=== PATIENT | female | born 1950 | race Caucasian/White ===

== ENCOUNTER 2020-07-26 11:15 | Outpatient (RCR) | payer MEDICARE, OTHER, SELFPAY ==
[2020-07-12 10:13] VITALS: BP 130/80; RESP 20; TEMP 36.3
[2020-07-12 11:43] VITALS: BP 132/82; PULSE 70; RESP 18
--- NOTE | 2020-07-12 12:23 | HP.PCM_ITS ---
(1) Wound of left lower extremity Status: Acute Code(s): S81.802A - Unspecified open wound, left lower leg, initial encounter Comment: Traumatic, penetrating with fat layer exposed. (2) History of liver transplant Status: Acute Code(s): Z94.4 - Liver transplant status History of Present Illness Date of Service: 07/12/20 Chief Complaint: Left Leg Wound History of Wound: Ms Hook is a 69-year-old who was referred to the wound center by her primary care physician due to left leg wound. Sustained 3 weeks ago after she fell from missing a step. Tried to manage this on her own but went to see her primary care physician when no significant improvement was noted. Had initially been applying Aquaphor but was switched to mupirocin by her primary care physician. She states that it improved a little. Denies chills, fever or otherwise feeling of unwell. Past Medical History Allergies/Adverse Reactions: Allergies ciprofloxacin [From Cipro] Adverse Reaction (Verified 07/12/20 11:25) Anaphylaxis Penicillins Adverse Reaction (Verified 07/12/20 11:25) Hives Review of Systems Constitutional: Denies: Anorexia, Chills, Fever Eyes: Denies: Blurred vision, Pain, Redness HEENT: Denies: Difficulty Hearing, Difficulty Swallowing, Head Aches Cardiovascular: Denies: Chest Pain, Claudication, Chest Pressure, Chest Tightness Respiratory: Denies: Cough, Hemoptysis, Pleuritic Pain Gastrointestinal: Denies: Abdominal Pain, Hematemesis, Vomiting Genitourinary: Denies: Hematuria Skin: Denies: Jaundice - Physical Exam Vital Signs Temp Pulse Resp BP 97.4 F L 70 18 132/82 H 07/12/20 10:13 07/12/20 11:43 07/12/20 11:43 07/12/20 11:43 General: Alert, Oriented x3, Cooperative, No apparent distress HEENT: Atraumatic, Normocephalic Oral: Moist Mucosa Neck: Supple, No JVD Lungs: Normal air movement Extremities: No cyanosis, Edema Skin: Ulcer/ Wound Wound Measurements and Assessment WC - Nurse 1 - General Ulcer Measurement Start: 07/12/20 10:13 Freq: Status: Active Protocol: Activity Type Activity Date Activity User E-Sign Co-Sign Detail Recorded Client Recorded Date Recorded By Document 07/12/20 10:13 MT [id number] 07/12/20 10:39 MT 07/12/20 10:13 Wound Center Nurse 1 [Ulcer Assessment] #1 Left Superior Celaya -Current Size (cm) - Length 10.5 -Current Size (cm) - Width 13.0 -Current Size (cm) - Depth 0.1 -Total Square Cm 136.50 -Exudate Amt Medium -Exudate Type Serosanguineous -Wound Margin Flat & Intact -Granulation Amt Medium (34-66%) -Granulation Quality Pale,[place],Red -Necrosis Amt Small (1-33%) -Necrotic Tissue Type Adherent Slough -Texture (Adeola-wound Skin Appearance) Assessed -Moisture (Adeola-wound Skin Appearance Assessed ) -Color (Adeola-wound Skin Appearance) Assessed -Temperature (Adeola-wound Skin No Abnormality Appearance) (Pt Warm) -Tenderness on Palpation (Adeola-wound No Skin Appearance) -Ulcer Cleansing Rinsed/ Irrigated with Saline -Foul Odor after Cleansing No -Anesthetic Used 4% Lidocaine Solution [Edema Assessment] -Lower Limb Edema Present NA WC - Nurse 2 - General Ulcer CM Notes Start: 07/12/20 10:13 Freq: Status: Active Protocol: Activity Type Activity Date Activity User E-Sign Co-Sign Detail Recorded Client Recorded Date Recorded By Document 07/12/20 10:52 MW [id number] 07/12/20 11:03 MW 07/12/20 10:52 Wound Center Nurse 2 [Procedure/Treatment] #1 Left Superior Celaya -Time 10:52 -Correct Patient Yes -Correct Side, Site, Position Yes -Correct Procedure Yes -Procedure Performed Yes -Type of Procedure Debridement -Clinical Debridement Subcutaneous -Tissue Removed Subcutaneous -Post Debridement (cm) - Length 10.5 -Post Debridement (cm) - Width 15.0 -Post Debridement (cm) - Depth 0.1 -Total Square (Post) (cm) 157.50 -Area of Debridement (cm) - Length 10.5 -Area of Debridement (cm) - Width 15.0 -Total Square (Area) (cm) 157.50 -Tunneling No -Undermining/Tunneling No -Circular Undermining No -Wound/Ulcer Outcome Not Healed -Ulcer Cleansing Rinsed/ Irrigated with Saline -Foul Odor after Cleansing No -Bioengineered Tissue No -Bleeding Controlled with Pressure -Offloading No -Debridement - Subq, 1st 20sq cm Yes -Debridement, SubQ, ea addt'l 20sq cm 7 or part thereof [See Physician Procedure note for Specifics] Pain Scale: 0-10 Numeric [Pain] -Is Patient Pain Free? Yes - Nurse 3 - General Ulcer D/C NN Start: 07/12/20 10:13 Freq: Status: Active Protocol: Activity Type Activity Date Activity User E-Sign Co-Sign Detail Recorded Client Recorded Date Recorded By Document 07/12/20 11:43 MT [id number] 07/12/20 11:53 MT 07/12/20 11:43 Wound Care Nurse 3 [Wound Dressing] #1 Left Superior Celaya -Ulcer Cleansing Rinsed/ Irrigated with Saline -Primary Dressing Applied Fibracol Plus 4x4 -Other Dressing adaptic -Primary Dressing Covered/Secured Dry Gauze & with Roll Gauze, Secured with Tape -Fibracol Plus 4x4 3 Vital Signs [Pulse] -Pulse Rate (60-100 beats/min) 70 -Pulse Location Monitor [Respirations] -Respiratory Rate (12-18 breaths/min) 18 -Respiratory rate source Observation [Blood Pressure] -Blood Pressure (90/60-120/80 mm Hg) 132/82 H -Blood Pressure Mean (mm Hg) 98 -Source Monitor -Position Semi-Fowlers -Blood Pressure Location Left Arm - Visit Discharge [Visit Discharge Information] -Discharge Condition Stable -Ambulatory Status Ambulatory -Transportation Private Auto -Medication Reconcilliation completed No & provided to patient/care provider -Clinical Summary of Care Provided Yes Musculoskeletal: No Muscle Wasting Neurological: Cranial nerves II-XII grossly intact Psych/Mental Status: Normal Affect Debridement Note Post-Debridement Measurements/Treatment - Nurse 2 - General Ulcer CM Notes Start: 07/12/20 10:13 Freq: Status: Active Protocol: Activity Type Activity Date Activity User E-Sign Co-Sign Detail Recorded Client Recorded Date Recorded By Document 07/12/20 10:52 MW [id number] 07/12/20 11:03 MW 07/12/20 10:52 Wound Center Nurse 2 #1 Left Superior Celaya -Time 10:52 -Correct Patient Yes -Correct Side, Site, Position Yes -Correct Procedure Yes -Procedure Performed Yes -Type of Procedure Debridement -Clinical Debridement Subcutaneous -Tissue Removed Subcutaneous -Post Debridement (cm) - Length 10.5 -Post Debridement (cm) - Width 15.0 -Post Debridement (cm) - Depth 0.1 -Total Square (Post) (cm) 157.50 -Area of Debridement (cm) - Length 10.5 -Area of Debridement (cm) - Width 15.0 -Total Square (Area) (cm) 157.50 -Tunneling No -Undermining/Tunneling No -Circular Undermining No -Wound/Ulcer Outcome Not Healed -Ulcer Cleansing Rinsed/ Irrigated with Saline -Foul Odor after Cleansing No -Bioengineered Tissue No -Bleeding Controlled with Pressure -Offloading No -Debridement - Subq, 1st 20sq cm Yes -Debridement, SubQ, ea addt'l 20sq cm 7 or part thereof Pain Scale: 0-10 Numeric Is Patient Pain Free? Yes - Nurse 3 - General Ulcer D/C NN Start: 07/12/20 10:13 Freq: Status: Active Protocol: Activity Type Activity Date Activity User E-Sign Co-Sign Detail Recorded Client Recorded Date Recorded By Document 07/12/20 11:43 OK [id number] 07/12/20 11:53 OK 07/12/20 11:43 Wound Care Nurse 3 #1 Left Superior Celaya -Ulcer Cleansing Rinsed/ Irrigated with Saline -Primary Dressing Applied Fibracol Plus 4x4 -Other Dressing adaptic -Primary Dressing Covered/Secured with Dry Gauze & Roll Gauze, Secured with Tape -Fibracol Plus 4x4 3 Vital Signs Pulse Rate (60-100 beats/min) 70 Pulse Location Monitor Respiratory Rate (12-18 breaths/min) 18 Respiratory rate source Observation Blood Pressure (90/60-120/80 mm Hg) 132/82 H Blood Pressure Mean (mm Hg) 98 Source Monitor Position Semi-Fowlers Blood Pressure Location Left Arm WC - Visit Discharge Discharge Condition Stable Ambulatory Status Ambulatory Transportation Private Auto Medication Reconcilliation completed & No provided to patient/care provider Clinical Summary of Care Provided Yes Wound debrided: Left leg Type of Debridement: Excisional debridement Anesthesia Used: 4% Lidocaine Solution Depth: Down to and including healthy tissue, in the subcutaneous layer Percentage of wound debrided: 100 Instrument Used: 7mm curette Tissue Removed: Slough and devitalized tissue Severity: Fat Layer Exposed Amount of bleeding with debridement: Mild Bleeding Controlled with: Pressure Patient tolerated procedure well Assessment/Plan Active Problems Wound of left lower extremity (Acute) Traumatic, penetrating with fat layer exposed. History of liver transplant (Acute) Assessment: Traumatic, penetrating left leg wound status post fall. History of liver transplant. Plan: Debridement done as documented above, procedure was well-tolerated. Cultures taken. Fibracol daily to twice daily depending on drainage. Adaptic and gauze over top. Double layer Tubigrip for edema management. Elevate lower extremities when seated and in bed. Increased protein intake discussed. Zinc and vitamin C supplements also recommended. Her questions were answered and she was advised to call with any further questions or concerns. Follow-up in a week. This note was generated with [email or web address] dictation software. It may contain incorrect words, spelling, and punctuation that were not noted in checking the note before signing. Multi Select Codes - Visit Charges Office Visit/Consults: 49507 OV L4 New - Integumentary Integumentary CPT Codes: 05288 Viky subq tissue 20 sq cm/< - Additional square centimeter debrided, please refer to clinical note.
[2020-07-19 11:02] VITALS: BP 120/83; PULSE 65; RESP 18; TEMP 36.4
[2020-07-19 11:35] VITALS: BP 118/76; PULSE 66
--- NOTE | 2020-07-19 12:23 | PN.PCM_ITS ---
(1) Wound of left lower extremity Status: Acute Code(s): S81.802A - Unspecified open wound, left lower leg, initial encounter Comment: Traumatic, penetrating with fat layer exposed. (2) History of liver transplant Status: Acute Code(s): Z94.4 - Liver transplant status Type of Wound Date of Service: 07/19/20 Chief Complaint: Left Leg Wound History of Wound: Ms Hook is a 69-year-old who was referred to the wound center by her primary care physician due to left leg wound. Sustained 3 weeks ago after she fell from missing a step. Tried to manage this on her own but went to see her primary care physician when no significant improvement was noted. Had initially been applying Aquaphor but was switched to mupirocin by her primary care physician. She states that it improved a little. Denies chills, fever or otherwise feeling of unwell. Progress of Wound: Improving. No new concerns at this time. - Physical Exam Vital Signs Temp Pulse Resp BP 97.5 F L 66 18 118/76 07/19/20 11:02 07/19/20 11:35 07/19/20 11:02 07/19/20 11:35 General: Alert, Oriented x3, Cooperative, No apparent distress HEENT: Atraumatic, Normocephalic Oral: Moist Mucosa Neck: Supple Lungs: Normal air movement Extremities: No cyanosis Skin: Ulcer/ Wound Wound Measurements and Assessment WC - Nurse 1 - General Ulcer Measurement Start: 07/12/20 10:13 Freq: Status: Active Protocol: Activity Type Activity Date Activity User E-Sign Co-Sign Detail Recorded Client Recorded Date Recorded By Document 07/19/20 11:02 [id number] 07/19/20 11:05 [email or web address] 07/19/20 11:02 Wound Center Nurse 1 [Ulcer Assessment] #1 Left Superior Celaya -Combined with other wound No -Current Size (cm) - Length 110 -Current Size (cm) - Width 13.8 -Current Size (cm) - Depth 0.1 -Total Square Cm 1518.0 -Tunneling No -Undermining/Tunneling No -Circular Undermining No -Exudate Amt Small -Exudate Type Serosanguineous -Wound Margin Flat & Intact -Granulation Amt Medium (34-66%) -Granulation Quality [place] -Slough/Fibrin Yes -Necrosis Amt Small (1-33%) -Necrotic Tissue Type Adherent Slough -Structure Exposed N/A -Texture (Adeola-wound Skin Appearance) Assessed -Moisture (Adeola-wound Skin Appearance Assessed ) -Color (Adeola-wound Skin Appearance) Hemosiderin Staining -Temperature (Adeola-wound Skin No Abnormality Appearance) (Pt Warm) -Tenderness on Palpation (Adeola-wound No Skin Appearance) -Ulcer Cleansing Wound Cleanser -Foul Odor after Cleansing No -Anesthetic Used 4% Lidocaine Solution [Edema Assessment] -Lower Limb Edema Present Yes -Left Calf (cm) 35 -Left Ankle (cm) 20.8 WC - Nurse 2 - General Ulcer CM Notes Start: 07/12/20 10:13 Freq: Status: Active Protocol: Activity Type Activity Date Activity User E-Sign Co-Sign Detail Recorded Client Recorded Date Recorded By Document 07/19/20 11:18 MW [id number] 07/19/20 11:24 MW 07/19/20 11:18 Wound Center Nurse 2 [Procedure/Treatment] #1 Left Superior Celaya -Time 11:18 -Correct Patient Yes -Correct Side, Site, Position Yes -Correct Procedure Yes -Procedure Performed Yes -Type of Procedure Debridement -Clinical Debridement Subcutaneous -Tissue Removed Subcutaneous -Post Debridement (cm) - Length 8.5 -Post Debridement (cm) - Width 14.0 -Post Debridement (cm) - Depth 0.1 -Total Square (Post) (cm) 119.00 -Area of Debridement (cm) - Length 8.5 -Area of Debridement (cm) - Width 14.0 -Total Square (Area) (cm) 119.00 -Tunneling No -Undermining/Tunneling No -Circular Undermining No -Wound/Ulcer Outcome Not Healed -Ulcer Cleansing Rinsed/ Irrigated with Saline -Foul Odor after Cleansing No -Bioengineered Tissue No -Bleeding Controlled with Pressure -Offloading No -Treatment Response Procedure Tolerated Well -Debridement - Subq, 1st 20sq cm Yes -Debridement, SubQ, ea addt'l 20sq cm 5 or part thereof [See Physician Procedure note for Specifics] Pain Scale: 0-10 Numeric [Pain] -Is Patient Pain Free? Yes S[place]IO - Nurse 3 - General Ulcer D/C NN Start: 07/12/20 10:13 Freq: Status: Active Protocol: Activity Type Activity Date Activity User E-Sign Co-Sign Detail Recorded Client Recorded Date Recorded By Document 07/19/20 11:35 MT [id number] 07/19/20 11:37 MT 07/19/20 11:35 Wound Care Nurse 3 [Wound Dressing] #1 Left Superior Celaya -Ulcer Cleansing Rinsed/ Irrigated with Saline -Primary Dressing Applied Fibracol Plus 4x4 -Fibracol Plus 4x4 1 Vital Signs [Pulse] -Pulse Rate (60-100 beats/min) 66 -Pulse Location Monitor [Blood Pressure] -Blood Pressure (90/60-120/80 mm Hg) 118/76 -Blood Pressure Mean (mm Hg) 90 -Source Monitor -Position Sitting -Blood Pressure Location Right Arm Pain Scale: 0-10 Numeric [Pain] -Is Patient Pain Free? Yes WC - Visit Discharge [Visit Discharge Information] -Discharge Condition Stable -Ambulatory Status Ambulatory -Transportation Private Auto -Medication Reconcilliation completed No & provided to patient/care provider -Clinical Summary of Care Provided Yes Musculoskeletal: No Muscle Wasting Neurological: Cranial nerves II-XII grossly intact Psych/Mental Status: Normal Affect Debridement Note Post-Debridement Measurements/Treatment WC - Nurse 2 - General Ulcer CM Notes Start: 07/12/20 10:13 Freq: Status: Active Protocol: Activity Type Activity Date Activity User E-Sign Co-Sign Detail Recorded Client Recorded Date Recorded By Document 07/12/20 10:52 MW [id number] 07/12/20 11:03 MW Document 07/19/20 11:18 MW [id number] 07/19/20 11:24 MW 07/12/20 07/19/20 10:52 11:18 Wound Center Nurse 2 #1 Left Superior Celaya -Time 10:52 11:18 -Correct Patient Yes Yes -Correct Side, Site, Position Yes Yes -Correct Procedure Yes Yes -Procedure Performed Yes Yes -Type of Procedure Debridement Debridement -Clinical Debridement Subcutaneous Subcutaneous -Tissue Removed Subcutaneous Subcutaneous -Post Debridement (cm) - Length 10.5 8.5 -Post Debridement (cm) - Width 15.0 14.0 -Post Debridement (cm) - Depth 0.1 0.1 -Total Square (Post) (cm) 157.50 119.00 -Area of Debridement (cm) - Length 10.5 8.5 -Area of Debridement (cm) - Width 15.0 14.0 -Total Square (Area) (cm) 157.50 119.00 -Tunneling No No -Undermining/Tunneling No No -Circular Undermining No No -Wound/Ulcer Outcome Not Healed Not Healed -Ulcer Cleansing Rinsed/ Rinsed/ Irrigated with Irrigated with Saline Saline -Foul Odor after Cleansing No No -Bioengineered Tissue No No -Bleeding Controlled with Pressure Pressure -Offloading No No -Treatment Response Procedure Tolerated Well -Debridement - Subq, 1st 20sq cm Yes Yes -Debridement, SubQ, ea addt'l 20sq cm 7 5 or part thereof Pain Scale: 0-10 Numeric Is Patient Pain Free? Yes Yes - Nurse 3 - General Ulcer D/C NN Start: 07/12/20 10:13 Freq: Status: Active Protocol: Activity Type Activity Date Activity User E-Sign Co-Sign Detail Recorded Client Recorded Date Recorded By Document 07/12/20 11:43 WA [id number] 07/12/20 11:53 WA Document 07/19/20 11:35 WA [id number] 07/19/20 11:37 [place] 07/12/20 07/19/20 11:43 11:35 Wound Care Nurse 3 #1 Left Superior Celaya -Ulcer Cleansing Rinsed/ Rinsed/ Irrigated with Irrigated with Saline Saline -Primary Dressing Applied Fibracol Plus Fibracol Plus 4x4 4x4 -Other Dressing adaptic -Primary Dressing Covered/Secured with Dry Gauze & Roll Gauze, Secured with Tape -Fibracol Plus 4x4 3 1 Vital Signs Pulse Rate (60-100 beats/min) 70 66 Pulse Location Monitor Monitor Respiratory Rate (12-18 breaths/min) 18 Respiratory rate source Observation Blood Pressure (90/60-120/80 mm Hg) 132/82 H 118/76 Blood Pressure Mean (mm Hg) 98 90 Source Monitor Monitor Position Semi-Fowlers Sitting Blood Pressure Location Left Arm Right Arm Pain Scale: 0-10 Numeric Is Patient Pain Free? Yes WC - Visit Discharge Discharge Condition Stable Stable Ambulatory Status Ambulatory Ambulatory Transportation Private Auto Private Auto Medication Reconcilliation completed & No No provided to patient/care provider Clinical Summary of Care Provided Yes Yes Wound debrided: Left Lower Extremity Type of Debridement: Excisional debridement Anesthesia Used: 4% Lidocaine Solution Depth: Down to and including healthy tissue, in the subcutaneous layer Instrument Used: 7mm curette Tissue Removed: Slough and devitalized tissue Severity: Fat Layer Exposed Amount of bleeding with debridement: Mild Bleeding Controlled with: Pressure Patient tolerated procedure well Assessment/Plan Active Problems Wound of left lower extremity (Acute) Traumatic, penetrating with fat layer exposed. History of liver transplant (Acute) Assessment: Traumatic, penetrating left leg wound status post fall. History of liver transplant. Plan: Debridement done as documented above, procedure was well-tolerated. Cultures reviewed, no significant growth. Wound is also improving. Continue Fibracol daily to twice daily depending on drainage. Adaptic and gauze over top. Double layer Tubigrip for edema management. Elevate lower extremities when seated and in bed. Increased protein intake discussed. Zinc and vitamin C supplements also recommended. Her questions were answered and she was advised to call with any further questions or concerns. Follow-up in a week. This note was generated with [employer] dictation software. It may contain incorrect words, spelling, and punctuation that were not noted in checking the note before signing. [id number]: [id number] Viky subq tissue 20 sq cm/< Add On Codes: [id number] Viky subq tissue add-on - Additional Sq Cm debrided, please refer to clinical note
[2020-07-26 11:05] VITALS: BP 149/75; PULSE 71; RESP 16; TEMP 36.1
[2020-07-26 11:52] VITALS: BP 136/81; PULSE 70
--- NOTE | 2020-07-26 12:27 | PCM.WC.PN ---
(1) Wound of left lower extremity Status: Acute Code(s): S81.802A - Unspecified open wound, left lower leg, initial encounter Comment: Traumatic, penetrating with fat layer exposed. (2) History of liver transplant Status: Acute Code(s): Z94.4 - Liver transplant status Type of Wound Date of Service: 07/26/20 Chief Complaint: Left Leg Wound History of Wound: Ms Hook is a 69-year-old who was referred to the wound center by her primary care physician due to left leg wound. Sustained 3 weeks ago after she fell from missing a step. Tried to manage this on her own but went to see her primary care physician when no significant improvement was noted. Had initially been applying Aquaphor but was switched to mupirocin by her primary care physician. She states that it improved a little. Denies chills, fever or otherwise feeling of unwell. Progress of Wound: Recently admitted to [facility] due to renal failure. Discharged yesterday. No significant change in wound. worsening edema. - Physical Exam Vital Signs Temp Pulse Resp BP 96.9 F L 70 16 136/81 H 07/26/20 11:05 07/26/20 11:52 07/26/20 11:05 07/26/20 11:52 General: Alert, Oriented x3, Cooperative, No apparent distress HEENT: Atraumatic, Normocephalic Oral: Moist Mucosa Neck: Supple Lungs: Normal air movement Extremities: No cyanosis, Edema Skin: Ulcer/ Wound Wound Measurements and Assessment WC - Nurse 1 - General Ulcer Measurement Start: 07/12/20 10:13 Freq: Status: Active Protocol: Activity Type Activity Date Activity User E-Sign Co-Sign Detail Recorded Client Recorded Date Recorded By Document 07/26/20 11:05 [facility] [id number] 07/26/20 11:16 [facility] 07/26/20 11:05 Wound Center Nurse 1 [Ulcer Assessment] #1 Left Superior Celaya -Combined with other wound No -Current Size (cm) - Length 10.9 -Current Size (cm) - Width 13.4 -Current Size (cm) - Depth 0.1 -Total Square Cm 146.06 -Photo Taken No -Epithelialization None Present -Tunneling No -Undermining/Tunneling No -Circular Undermining No -Exudate Amt Large -Exudate Type Serosanguineous -Wound Margin Distinct, Outline Attached -Granulation Amt Large (67-100%) -Granulation Quality Red -Slough/Fibrin Yes -Necrosis Amt Medium (34-66%) -Necrotic Tissue Type Adherent Slough -Texture (Adeola-wound Skin Appearance) Assessed, Scarring -Moisture (Adeola-wound Skin Appearance Assessed,Dry/ ) Scaly -Color (Adeola-wound Skin Appearance) Assessed, Hemosiderin Staining -Temperature (Adeola-wound Skin No Abnormality Appearance) (Pt Warm) -Tenderness on Palpation (Adeola-wound Yes Skin Appearance) -Ulcer Cleansing soapy water -Foul Odor after Cleansing No -Anesthetic Used 4% Lidocaine Solution [Edema Assessment] -Lower Limb Edema Present Yes -Left Calf (cm) 35 -Left Ankle (cm) 21.8 WC - Nurse 2 - General Ulcer CM Notes Start: 07/12/20 10:13 Freq: Status: Active Protocol: Activity Type Activity Date Activity User E-Sign Co-Sign Detail Recorded Client Recorded Date Recorded By Document 07/26/20 11:23 MW [id number] 07/26/20 11:29 MW 07/26/20 11:23 Wound Center Nurse 2 [Procedure/Treatment] #1 Left Superior Celaya -Time 11:23 -Correct Patient Yes -Correct Side, Site, Position Yes -Correct Procedure Yes -Procedure Performed Yes -Type of Procedure Debridement -Clinical Debridement Subcutaneous -Tissue Removed Subcutaneous -Post Debridement (cm) - Length 8.5 -Post Debridement (cm) - Width 14.0 -Post Debridement (cm) - Depth 0.1 -Total Square (Post) (cm) 119.00 -Area of Debridement (cm) - Length 8.5 -Area of Debridement (cm) - Width 14.0 -Total Square (Area) (cm) 119.00 -Tunneling No -Undermining/Tunneling No -Circular Undermining No -Wound/Ulcer Outcome Not Healed -Ulcer Cleansing Rinsed/ Irrigated with Saline -Foul Odor after Cleansing No -Bioengineered Tissue No -Bleeding Controlled with Pressure -Offloading No -Debridement - Subq, 1st 20sq cm Yes -Debridement, SubQ, ea addt'l 20sq cm 5 or part thereof [See Physician Procedure note for Specifics] Pain Scale: 0-10 Numeric [Pain] -Is Patient Pain Free? Yes - Nurse 3 - General Ulcer D/C NN Start: 07/12/20 10:13 Freq: Status: Active Protocol: Activity Type Activity Date Activity User E-Sign Co-Sign Detail Recorded Client Recorded Date Recorded By Document 07/26/20 11:52 RB [id number] 07/26/20 11:53 RB 07/26/20 11:52 Wound Care Nurse 3 [Wound Dressing] #1 Left Superior Celaya -Ulcer Cleansing Rinsed/ Irrigated with Saline -Primary Dressing Applied Fibracol Plus 4x4,NonAdherent Contact Layer -Other Dressing abd -Primary Dressing Covered/Secured Dry Gauze,Dry with Gauze & Roll Gauze,Secured with Tape -Fibracol Plus 4x4 1 [Post Procedure Tolerated] -Treatment Response Procedure Tolerated Well Vital Signs [Pulse] -Pulse Rate (60-100 beats/min) 70 -Pulse Location Monitor [Blood Pressure] -Blood Pressure (90/60-120/80 mm Hg) 136/81 H -Blood Pressure Mean (mm Hg) 99 -Source Monitor -Position Semi-Fowlers -Blood Pressure Location Left Arm Pain Scale: 0-10 Numeric [Pain] -Is Patient Pain Free? Yes WC - Visit Discharge [Visit Discharge Information] -Discharge Condition Stable -Ambulatory Status Ambulatory -Transportation Private Auto -Medication Reconcilliation completed No & provided to patient/care provider -Clinical Summary of Care Provided Yes Musculoskeletal: No Muscle Wasting Neurological: Cranial nerves II-XII grossly intact Psych/Mental Status: Normal Affect Debridement Note Post-Debridement Measurements/Treatment WC - Nurse 2 - General Ulcer CM Notes Start: 07/12/20 10:13 Freq: Status: Active Protocol: Activity Type Activity Date Activity User E-Sign Co-Sign Detail Recorded Client Recorded Date Recorded By Document 07/12/20 10:52 MW [id number] 07/12/20 11:03 MW Document 07/19/20 11:18 MW [id number] 07/19/20 11:24 MW Document 07/26/20 11:23 MW [id number] 07/26/20 11:29 MW 07/12/20 07/19/20 07/26/20 10:52 11:18 11:23 Wound Center Nurse 2 #1 Left Superior Celaya -Time 10:52 11:18 11:23 -Correct Patient Yes Yes Yes -Correct Side, Site, Position Yes Yes Yes -Correct Procedure Yes Yes Yes -Procedure Performed Yes Yes Yes -Type of Procedure Debridement Debridement Debridement -Clinical Debridement Subcutaneous Subcutaneous Subcutaneous -Tissue Removed Subcutaneous Subcutaneous Subcutaneous -Post Debridement (cm) - Length 10.5 8.5 8.5 -Post Debridement (cm) - Width 15.0 14.0 14.0 -Post Debridement (cm) - Depth 0.1 0.1 0.1 -Total Square (Post) (cm) 157.50 119.00 119.00 -Area of Debridement (cm) - Length 10.5 8.5 8.5 -Area of Debridement (cm) - Width 15.0 14.0 14.0 -Total Square (Area) (cm) 157.50 119.00 119.00 -Tunneling No No No -Undermining/Tunneling No No No -Circular Undermining No No No -Wound/Ulcer Outcome Not Healed Not Healed Not Healed -Ulcer Cleansing Rinsed/ Rinsed/ Rinsed/ Irrigated with Irrigated with Irrigated with Saline Saline Saline -Foul Odor after Cleansing No No No -Bioengineered Tissue No No No -Bleeding Controlled with Pressure Pressure Pressure -Offloading No No No -Treatment Response Procedure Tolerated Well -Debridement - Subq, 1st 20sq cm Yes Yes Yes -Debridement, SubQ, ea addt'l 20sq cm 7 5 5 or part thereof Pain Scale: 0-10 Numeric Is Patient Pain Free? Yes Yes Yes - Nurse 3 - General Ulcer D/C NN Start: 07/12/20 10:13 Freq: Status: Active Protocol: Activity Type Activity Date Activity User E-Sign Co-Sign Detail Recorded Client Recorded Date Recorded By Document 07/12/20 11:43 [place] [id number] 07/12/20 11:53 [place] Document 07/19/20 11:35 [place] [id number] 07/19/20 11:37 [place] Document 07/26/20 11:52 [id number] 07/26/20 11:53 RB 07/12/20 07/19/20 07/26/20 11:43 11:35 11:52 Wound Care Nurse 3 #1 Left Superior Celaya -Ulcer Cleansing Rinsed/ Rinsed/ Rinsed/ Irrigated with Irrigated with Irrigated with Saline Saline Saline -Primary Dressing Applied Fibracol Plus Fibracol Plus Fibracol Plus 4x4 4x4 4x4,NonAdherent Contact Layer -Other Dressing adaptic abd -Primary Dressing Covered/Secured with Dry Gauze & Dry Gauze,Dry Roll Gauze, Gauze & Roll Secured with Gauze,Secured Tape with Tape -Fibracol Plus 4x4 3 1 1 Treatment Response Procedure Tolerated Well Vital Signs Pulse Rate (60-100 beats/min) 70 66 70 Pulse Location Monitor Monitor Monitor Respiratory Rate (12-18 breaths/min) 18 Respiratory rate source Observation Blood Pressure (90/60-120/80 mm Hg) 132/82 H 118/76 136/81 H Blood Pressure Mean (mm Hg) 98 90 99 Source Monitor Monitor Monitor Position Semi-Fowlers Sitting Semi-Fowlers Blood Pressure Location Left Arm Right Arm Left Arm Pain Scale: 0-10 Numeric Is Patient Pain Free? Yes Yes WC - Visit Discharge Discharge Condition Stable Stable Stable Ambulatory Status Ambulatory Ambulatory Ambulatory Transportation Private Auto Private Auto Private Auto Medication Reconcilliation completed & No No No provided to patient/care provider Clinical Summary of Care Provided Yes Yes Yes Wound debrided: Left lower extremity Type of Debridement: Excisional debridement Anesthesia Used: 4% Lidocaine Solution Depth: Down to and including healthy tissue, in the subcutaneous layer Percentage of wound debrided: 100 Instrument Used: 5mm curette Tissue Removed: Slough and devitalized tissue Severity: Fat Layer Exposed Amount of bleeding with debridement: Mild Bleeding Controlled with: Pressure Patient tolerated procedure well Assessment/Plan Active Problems Wound of left lower extremity (Acute) Traumatic, penetrating with fat layer exposed. History of liver transplant (Acute) Assessment: Traumatic, penetrating left leg wound status post fall. History of liver transplant. Plan: Debridement done as documented above, procedure was well-tolerated. No significant change in wound. Edema. Continue Fibracol daily to twice daily depending on drainage. Adaptic and gauze over top. Double layer Tubigrip for edema management. Elevate lower extremities when seated and in bed. Consider 3 M for compression at next visit. Increased protein intake discussed. Zinc and vitamin C supplements also recommended. Her questions were answered and she was advised to call with any further questions or concerns. Follow-up in a week. This note was generated with [employer] dictation software. It may contain incorrect words, spelling, and punctuation that were not noted in checking the note before signing. [id number]: [id number] Viky subq tissue 20 sq cm/< Add On Codes: [id number] Viky subq tissue add-on - Additional Sq Cm debrided,please refer to clinical note
== END 2020-07-28 23:59 ==
LOC: WC 11:15
PROVIDERS: PCP Family Medicine; Referring Provider Internal Medicine; Visit Provider Internal Medicine
DX: S81.832A Puncture wound without foreign body, left lower leg, initial encounter (principal); W10.9XXA Fall (on) (from) unspecified stairs and steps, initial encounter; Z94.4 Liver transplant status
CPT/HCPCS: 11042; 11045; 87070; 87075; 87077; 87205; 99203; G0463

== ENCOUNTER 2020-08-16 09:30 | Outpatient (RCR) | payer MEDICARE, OTHER, SELFPAY ==
[2020-07-29 00:38] VITALS: BP 136/81; PULSE 70; RESP 16; TEMP 36.1
[2020-08-02 11:12] VITALS: BP 127/81; PULSE 73; RESP 18; TEMP 36.2
--- NOTE | 2020-08-02 12:58 | PN.PCM_ITS ---
(1) History of liver transplant Status: Chronic Code(s): Z94.4 - Liver transplant status (2) Wound of left lower extremity Status: Chronic Code(s): S81.802A - Unspecified open wound, left lower leg, initial encounter Comment: Traumatic, penetrating with fat layer exposed. Type of Wound Date of Service: 08/02/20 Chief Complaint: Left Leg Wound History of Wound: Ms Hook is a 69-year-old who was referred to the wound center by her primary care physician due to left leg wound. Sustained 3 weeks ago after she fell from missing a step. Tried to manage this on her own but went to see her primary care physician when no significant improvement was noted. Had initially been applying Aquaphor but was switched to mupirocin by her primary care physician. She states that it improved a little. Denies chills, fever or otherwise feeling of unwell. Progress of Wound: Noted more pain over the last couple of days. Has also noted increased drianage. - Physical Exam Vital Signs Temp Pulse Resp BP 97.2 F L 73 18 127/81 H 08/02/20 11:12 08/02/20 11:12 08/02/20 11:12 08/02/20 11:12 General: Alert, Oriented x3, Cooperative, No apparent distress HEENT: Atraumatic, Normocephalic Neck: Supple Lungs: Normal air movement Extremities: No cyanosis, Edema Skin: Ulcer/ Wound Wound Measurements and Assessment WC - Nurse 1 - General Ulcer Measurement Start: 08/02/20 11:12 Freq: Status: Active Protocol: Activity Type Activity Date Activity User E-Sign Co-Sign Detail Recorded Client Recorded Date Recorded By Document 08/02/20 11:12 [facility] [id number] 08/02/20 11:23 [facility] 08/02/20 11:12 Wound Center Nurse 1 [Ulcer Assessment] #1 Left Superior Celaya -Combined with other wound No -Current Size (cm) - Length 9.3 -Current Size (cm) - Width 13.6 -Current Size (cm) - Depth 0.1 -Total Square Cm 126.48 -Photo Taken No -Epithelialization None Present -Tunneling No -Undermining/Tunneling No -Circular Undermining No -Exudate Amt Large -Exudate Type Serosanguineous -Wound Margin Distinct, Outline Attached -Granulation Amt Large (67-100%) -Granulation Quality Hyper- granulation,Red -Slough/Fibrin Yes -Necrosis Amt Small (1-33%) -Necrotic Tissue Type Adherent Slough -Structure Exposed N/A -Texture (Adeola-wound Skin Appearance) Assessed, Scarring -Moisture (Adeola-wound Skin Appearance Assessed,Dry/ ) Scaly -Color (Adeola-wound Skin Appearance) Assessed, Hemosiderin Staining -Temperature (Adeola-wound Skin No Abnormality Appearance) (Pt Warm) -Tenderness on Palpation (Adeola-wound Yes Skin Appearance) -Ulcer Cleansing SOAP AND WATER -Foul Odor after Cleansing No -Anesthetic Used 4% Lidocaine Solution [Edema Assessment] -Left Calf (cm) 36.5 -Left Ankle (cm) 22.1 WC - Nurse 2 - General Ulcer CM Notes Start: 08/02/20 11:12 Freq: Status: Active Protocol: Activity Type Activity Date Activity User E-Sign Co-Sign Detail Recorded Client Recorded Date Recorded By Document 08/02/20 11:37 MW [id number] 08/02/20 11:52 MW 08/02/20 11:37 Wound Center Nurse 2 [Procedure/Treatment] #1 Left Superior Celaya -Time 11:38 -Correct Patient Yes -Correct Side, Site, Position Yes -Correct Procedure Yes -Procedure Performed Yes -Type of Procedure Debridement -Clinical Debridement Subcutaneous -Tissue Removed Subcutaneous -Post Debridement (cm) - Length 7.0 -Post Debridement (cm) - Width 15.0 -Post Debridement (cm) - Depth 0.1 -Total Square (Post) (cm) 105.00 -Area of Debridement (cm) - Length 7.0 -Area of Debridement (cm) - Width 15.0 -Total Square (Area) (cm) 105.00 -Tunneling No -Undermining/Tunneling No -Circular Undermining No -Wound/Ulcer Outcome Not Healed -Ulcer Cleansing Rinsed/ Irrigated with Saline -Foul Odor after Cleansing No -Bioengineered Tissue No -Bleeding Controlled with Pressure -Offloading No -Treatment Response Procedure Tolerated Well -Debridement - Subq, 1st 20sq cm Yes -Debridement, SubQ, ea addt'l 20sq cm 5 or part thereof [See Physician Procedure note for Specifics] Pain Scale: 0-10 Numeric [Pain] -Is Patient Pain Free? Yes - Nurse 3 - General Ulcer D/C NN Start: 08/02/20 11:12 Freq: Status: Active Protocol: Activity Type Activity Date Activity User E-Sign Co-Sign Detail Recorded Client Recorded Date Recorded By Document 08/02/20 11:57 [facility] [id number] 08/02/20 11:58 [facility] 08/02/20 11:57 Wound Care Nurse 3 [Wound Dressing] #1 Left Superior Celaya -Ulcer Cleansing Rinsed/ Irrigated with Saline -Foul Odor after Cleansing No -Primary Dressing Applied Aquacel AG 4x4, NonAdherent Contact Layer -Other Dressing DRSG PER Mary ALLRED RN -Primary Dressing Covered/Secured Dry Gauze & with Roll Gauze, Secured with Tape -Aquacel AG 4x4 3 [Compression Applied] Left -Other APPLIED PTS OWN TUBIGRIP Pain Scale: 0-10 Numeric [Pain] -Is Patient Pain Free? Yes WC - Visit Discharge [Visit Discharge Information] -Discharge Condition Stable -Ambulatory Status Ambulatory -Transportation Private Auto -Accompanied by Musculoskeletal: No Muscle Wasting Neurological: Cranial nerves II-XII grossly intact Psych/Mental Status: Normal Affect Debridement Note Post-Debridement Measurements/Treatment WC - Nurse 2 - General Ulcer CM Notes Start: 08/02/20 11:12 Freq: Status: Active Protocol: Activity Type Activity Date Activity User E-Sign Co-Sign Detail Recorded Client Recorded Date Recorded By Document 08/02/20 11:37 MW [id number] 08/02/20 11:52 MW 08/02/20 11:37 Wound Center Nurse 2 #1 Left Superior Celaya -Time 11:38 -Correct Patient Yes -Correct Side, Site, Position Yes -Correct Procedure Yes -Procedure Performed Yes -Type of Procedure Debridement -Clinical Debridement Subcutaneous -Tissue Removed Subcutaneous -Post Debridement (cm) - Length 7.0 -Post Debridement (cm) - Width 15.0 -Post Debridement (cm) - Depth 0.1 -Total Square (Post) (cm) 105.00 -Area of Debridement (cm) - Length 7.0 -Area of Debridement (cm) - Width 15.0 -Total Square (Area) (cm) 105.00 -Tunneling No -Undermining/Tunneling No -Circular Undermining No -Wound/Ulcer Outcome Not Healed -Ulcer Cleansing Rinsed/ Irrigated with Saline -Foul Odor after Cleansing No -Bioengineered Tissue No -Bleeding Controlled with Pressure -Offloading No -Treatment Response Procedure Tolerated Well -Debridement - Subq, 1st 20sq cm Yes -Debridement, SubQ, ea addt'l 20sq cm 5 or part thereof Pain Scale: 0-10 Numeric Is Patient Pain Free? Yes - Nurse 3 - General Ulcer D/C NN Start: 08/02/20 11:12 Freq: Status: Active Protocol: Activity Type Activity Date Activity User E-Sign Co-Sign Detail Recorded Client Recorded Date Recorded By Document 08/02/20 11:57 [facility] [id number] 08/02/20 11:58 [facility] 08/02/20 11:57 Wound Care Nurse 3 #1 Left Superior Celaya -Ulcer Cleansing Rinsed/ Irrigated with Saline -Foul Odor after Cleansing No -Primary Dressing Applied Aquacel AG 4x4, NonAdherent Contact Layer -Other Dressing ANIKA ALLRED RN -Primary Dressing Covered/Secured with Dry Gauze & Roll Gauze, Secured with Tape -Aquacel AG 4x4 3 Left -Other APPLIED PTS OWN TUBIGRIP Pain Scale: 0-10 Numeric Is Patient Pain Free? Yes - Visit Discharge Discharge Condition Stable Ambulatory Status Ambulatory Transportation Private Auto Accompanied by Wound debrided: Left Lower extremity Type of Debridement: Excisional debridement Anesthesia Used: 4% Lidocaine Solution Depth: Down to and including healthy tissue, in the subcutaneous layer Percentage of wound debrided: 100 Instrument Used: 7mm curette Tissue Removed: Slough and devitalized tissue Severity: Fat Layer Exposed Amount of bleeding with debridement: Mild Bleeding Controlled with: Pressure Patient tolerated procedure well Assessment/Plan Active Problems Wound of left lower extremity (Chronic) Traumatic, penetrating with fat layer exposed. History of liver transplant (Chronic) Assessment: Traumatic, penetrating left leg wound status post fall. History of liver transplant. Plan: Debridement done as documented above, procedure was well-tolerated. No significant change in wound. Switch to aquacel Ag due to drainage and cocnern for infection due to pain. Cultures taken. Adaptic and gauze over top. Continue Double layer Tubigrip for edema management. Elevate lower extremities when seated and in bed. Increased protein intake discussed. Zinc and vitamin C supplements also recommended. Her questions were answered and she was advised to call with any further questions or concerns. Follow-up in a week. This note was generated with [employer] software. It may contain incorrect words, spelling, and punctuation that were not noted in checking the note before signing. 111xxx-[id number]: [id number] Viky subq tissue 20 sq cm/< Add On Codes: [id number] Viky subq tissue add-on - Additional Sq Cm debrided, please refer to clinical note.
[2020-08-09 11:12] VITALS: BP 174/81; PULSE 70; RESP 18; TEMP 36
[2020-08-09 11:52] VITALS: BP 140/85
--- NOTE | 2020-08-09 12:20 | PN.PCM_ITS ---
(1) History of liver transplant Status: Chronic Code(s): Z94.4 - Liver transplant status (2) Wound of left lower extremity Status: Chronic Code(s): S81.802A - Unspecified open wound, left lower leg, initial encounter Comment: Traumatic, penetrating with fat layer exposed. Type of Wound Date of Service: 08/09/20 Chief Complaint: Left Leg Wound History of Wound: Ms Hook is a 69-year-old who was referred to the wound center by her primary care physician due to left leg wound. Sustained 3 weeks ago after she fell from missing a step. Tried to manage this on her own but went to see her primary care physician when no significant improvement was noted. Had initially been applying Aquaphor but was switched to mupirocin by her primary care physician. She states that it improved a little. Denies chills, fever or otherwise feeling of unwell. Progress of Wound: Improving. No new concerns at this time. - Physical Exam Vital Signs Temp Pulse Resp BP 96.8 F L 70 18 140/85 H 08/09/20 11:12 08/09/20 11:12 08/09/20 11:12 08/09/20 11:52 General: Alert, Oriented x3, No apparent distress HEENT: Atraumatic, Normocephalic Oral: Moist Mucosa Neck: Supple Lungs: Normal air movement Extremities: No cyanosis Skin: Ulcer/ Wound Wound Measurements and Assessment WC - Nurse 1 - General Ulcer Measurement Start: 08/02/20 11:12 Freq: Status: Active Protocol: Activity Type Activity Date Activity User E-Sign Co-Sign Detail Recorded Client Recorded Date Recorded By Document 08/09/20 11:12 FL [id number] 08/09/20 11:25 FL 08/09/20 11:12 Wound Center Nurse 1 [Ulcer Assessment] #1 Left Superior Celaya -Current Size (cm) - Length 9 -Current Size (cm) - Width 13.8 -Current Size (cm) - Depth 0.2 -Total Square Cm 124.2 -Exudate Amt Small -Exudate Type Sanguineous -Wound Margin Thickened -Granulation Amt Large (67-100%) -Granulation Quality Red -Slough/Fibrin No -Texture (Adeola-wound Skin Appearance) Assessed -Moisture (Adeola-wound Skin Appearance Assessed ) -Color (Adeola-wound Skin Appearance) Assessed,Rubor -Temperature (Adeola-wound Skin No Abnormality Appearance) (Pt Warm) -Tenderness on Palpation (Adeola-wound No Skin Appearance) -Ulcer Cleansing Rinsed/ Irrigated with Saline -Foul Odor after Cleansing No -Anesthetic Used 4% Lidocaine Solution [Edema Assessment] -Left Calf (cm) 38.7 -Left Ankle (cm) 23.5 WC - Nurse 2 - General Ulcer CM Notes Start: 08/02/20 11:12 Freq: Status: Active Protocol: Activity Type Activity Date Activity User E-Sign Co-Sign Detail Recorded Client Recorded Date Recorded By Document 08/09/20 11:33 MW [id number] 08/09/20 11:40 MW 08/09/20 11:33 Wound Center Nurse 2 [Procedure/Treatment] #1 Left Superior Celaya -Time 11:36 -Correct Patient Yes -Correct Side, Site, Position Yes -Correct Procedure Yes -Procedure Performed Yes -Type of Procedure Debridement -Clinical Debridement Subcutaneous -Tissue Removed Subcutaneous -Post Debridement (cm) - Length 7.0 -Post Debridement (cm) - Width 12.5 -Post Debridement (cm) - Depth 0.1 -Total Square (Post) (cm) 87.50 -Area of Debridement (cm) - Length 7.0 -Area of Debridement (cm) - Width 12.5 -Total Square (Area) (cm) 87.50 -Tunneling No -Undermining/Tunneling No -Circular Undermining No -Wound/Ulcer Outcome Not Healed -Ulcer Cleansing Rinsed/ Irrigated with Saline -Foul Odor after Cleansing No -Bioengineered Tissue No -Bleeding Controlled with Pressure -Offloading No -Treatment Response Procedure Tolerated Well -Debridement - Subq, 1st 20sq cm Yes -Debridement, SubQ, ea addt'l 20sq cm 4 or part thereof [See Physician Procedure note for Specifics] Pain Scale: 0-10 Numeric [Pain] -Is Patient Pain Free? Yes WC - Nurse 3 - General Ulcer D/C NN Start: 08/02/20 11:12 Freq: Status: Active Protocol: Activity Type Activity Date Activity User E-Sign Co-Sign Detail Recorded Client Recorded Date Recorded By Document 08/09/20 11:43 BM [id number] 08/09/20 11:44 BMF Document 08/09/20 11:52 BM [id number] 08/09/20 11:52 BMF 08/09/20 08/09/20 11:43 11:52 Wound Care Nurse 3 [Wound Dressing] #1 Left Superior Celaya -Ulcer Cleansing Rinsed/ Irrigated with Saline -Foul Odor after Cleansing No -Primary Dressing Applied Aquacel AG 4x4, NonAdherent Contact Layer -Primary Dressing Covered/Secured Dry Gauze & with Roll Gauze, Secured with Tape,Other -Other Covering ABD -Aquacel AG 4x4 1 [Compression Applied] Left -Other PT WILL APPLY OWN TUBI ACUPUNCTURE PHYSICIAN@ HOME Vital Signs [Blood Pressure] -Blood Pressure (90/60-120/80 mm Hg) 140/85 H -Blood Pressure Mean (mm Hg) 103 -Source Manual Pain Scale: 0-10 Numeric [Pain] -Is Patient Pain Free? Yes WC - Visit Discharge [Visit Discharge Information] -Discharge Condition Stable -Ambulatory Status Ambulatory -Transportation Private Auto Musculoskeletal: No Muscle Wasting Neurological: Cranial nerves II-XII grossly intact Psych/Mental Status: Normal Affect Debridement Note Post-Debridement Measurements/Treatment WC - Nurse 2 - General Ulcer CM Notes Start: 08/02/20 11:12 Freq: Status: Active Protocol: Activity Type Activity Date Activity User E-Sign Co-Sign Detail Recorded Client Recorded Date Recorded By Document 08/02/20 11:37 MW [id number] 08/02/20 11:52 MW Document 08/09/20 11:33 MW [id number] 08/09/20 11:40 MW 08/02/20 08/09/20 11:37 11:33 Wound Center Nurse 2 #1 Left Superior Celaya -Time 11:38 11:36 -Correct Patient Yes Yes -Correct Side, Site, Position Yes Yes -Correct Procedure Yes Yes -Procedure Performed Yes Yes -Type of Procedure Debridement Debridement -Clinical Debridement Subcutaneous Subcutaneous -Tissue Removed Subcutaneous Subcutaneous -Post Debridement (cm) - Length 7.0 7.0 -Post Debridement (cm) - Width 15.0 12.5 -Post Debridement (cm) - Depth 0.1 0.1 -Total Square (Post) (cm) 105.00 87.50 -Area of Debridement (cm) - Length 7.0 7.0 -Area of Debridement (cm) - Width 15.0 12.5 -Total Square (Area) (cm) 105.00 87.50 -Tunneling No No -Undermining/Tunneling No No -Circular Undermining No No -Wound/Ulcer Outcome Not Healed Not Healed -Ulcer Cleansing Rinsed/ Rinsed/ Irrigated with Irrigated with Saline Saline -Foul Odor after Cleansing No No -Bioengineered Tissue No No -Bleeding Controlled with Pressure Pressure -Offloading No No -Treatment Response Procedure Procedure Tolerated Well Tolerated Well -Debridement - Subq, 1st 20sq cm Yes Yes -Debridement, SubQ, ea addt'l 20sq cm 5 4 or part thereof Pain Scale: 0-10 Numeric Is Patient Pain Free? Yes Yes - Nurse 3 - General Ulcer D/C NN Start: 08/02/20 11:12 Freq: Status: Active Protocol: Activity Type Activity Date Activity User E-Sign Co-Sign Detail Recorded Client Recorded Date Recorded By Document 08/02/20 11:57 [facility] [id number] 08/02/20 11:58 [facility] Document 08/09/20 11:43 [facility] [id number] 08/09/20 11:44 [facility] Document 08/09/20 11:52 [facility] [id number] 08/09/20 11:52 [facility] 08/02/20 08/09/20 08/09/20 11:57 11:43 11:52 Wound Care Nurse 3 #1 Left Superior Celaya -Ulcer Cleansing Rinsed/ Rinsed/ Irrigated with Irrigated with Saline Saline -Foul Odor after Cleansing No No -Primary Dressing Applied Aquacel AG 4x4, Aquacel AG 4x4, NonAdherent NonAdherent Contact Layer Contact Layer -Other Dressing DRSG BANDAR ALLRED RN -Primary Dressing Covered/Secured with Dry Gauze & Dry Gauze & Roll Gauze, Roll Gauze, Secured with Secured with Tape Tape,Other -Other Covering ABD -Aquacel AG 4x4 3 1 Left -Other APPLIED PTS OWN PT WILL APPLY TUBIGRIP OWN TUBI ACUPUNCTURE PHYSICIAN@ HOME Vital Signs Blood Pressure (90/60-120/80 mm Hg) 140/85 H Blood Pressure Mean (mm Hg) 103 Source Manual Pain Scale: 0-10 Numeric Is Patient Pain Free? Yes Yes - Visit Discharge Discharge Condition Stable Stable Ambulatory Status Ambulatory Ambulatory Transportation Private Auto Private Auto Accompanied by Wound debrided: Left lower extremity Type of Debridement: Excisional debridement Anesthesia Used: 4% Lidocaine Solution Depth: Down to and including healthy tissue, in the subcutaneous layer Percentage of wound debrided: 100 Instrument Used: 5mm curette Tissue Removed: Slough and devitalized tissue Severity: Fat Layer Exposed Amount of bleeding with debridement: Mild Bleeding Controlled with: Pressure Patient tolerated procedure well Assessment/Plan Active Problems Wound of left lower extremity (Chronic) Traumatic, penetrating with fat layer exposed. History of liver transplant (Chronic) Assessment: Traumatic, penetrating left leg wound status post fall. History of liver transplant. Plan: Debridement done as documented above, procedure was well-tolerated. Improving. No new concerns at this time. Continue [employer]. Culture reviewed, rare Pseudomonas and 1+ Staph epidermidis cultured however due to kidney disease and other concerns, will hold off and monitor closely for now. Continue Double layer Tubigrip for edema management. Elevate lower extremities when seated and in bed. Increased protein intake discussed. Zinc and vitamin C supplements also recommended. Her questions were answered and she was advised to call with any further questions or concerns. Follow-up in a week. This note was generated with [employer] dictation software. It may contain incorrect words, spelling, and punctuation that were not noted in checking the note before signing. [id number]: [id number] Viky subq tissue 20 sq cm/< Add On Codes: [id number] Viky subq tissue add-on - Additional square centimeters debrided, please refer to clinical note.
[2020-08-16 09:35] VITALS: BP 148/77; PULSE 63; RESP 18; TEMP 36.6
[2020-08-16 10:11] VITALS: BP 131/72; PULSE 63
--- NOTE | 2020-08-16 12:16 | PCM.WC.PN ---
(1) History of liver transplant Status: Chronic Code(s): Z94.4 - Liver transplant status (2) Wound of left lower extremity Status: Chronic Code(s): S81.802A - Unspecified open wound, left lower leg, initial encounter Comment: Traumatic, penetrating with fat layer exposed. Type of Wound Date of Service: 08/16/20 Chief Complaint: Left Leg Wound History of Wound: Ms Hook is a 69-year-old who was referred to the wound center by her primary care physician due to left leg wound. Sustained 3 weeks ago after she fell from missing a step. Tried to manage this on her own but went to see her primary care physician when no significant improvement was noted. Had initially been applying Aquaphor but was switched to mupirocin by her primary care physician. She states that it improved a little. Denies chills, fever or otherwise feeling of unwell. Progress of Wound: Improving. No new concerns at this time. - Physical Exam Vital Signs Temp Pulse Resp BP 98 F 63 18 131/72 H 08/16/20 09:35 08/16/20 10:11 08/16/20 09:35 08/16/20 10:11 General: Alert, Oriented x3, Cooperative, No apparent distress HEENT: Atraumatic, Normocephalic Oral: Moist Mucosa Neck: Supple Lungs: Normal air movement, No wheeze Extremities: No cyanosis Skin: Ulcer/ Wound Wound Measurements and Assessment WC - Nurse 1 - General Ulcer Measurement Start: 08/02/20 11:12 Freq: Status: Active Protocol: Activity Type Activity Date Activity User E-Sign Co-Sign Detail Recorded Client Recorded Date Recorded By Document 08/16/20 09:35 [id number] 08/16/20 09:38 RB 08/16/20 09:35 Wound Center Nurse 1 [Ulcer Assessment] #1 Left Superior Celaya -Combined with other wound No -Current Size (cm) - Length 8 -Current Size (cm) - Width 10 -Current Size (cm) - Depth 0.1 -Total Square Cm 80 -Tunneling No -Undermining/Tunneling No -Circular Undermining No -Exudate Amt Medium -Exudate Type Serosanguineous -Wound Margin Flat & Intact -Granulation Amt Medium (34-66%) -Granulation Quality [place],Red -Slough/Fibrin Yes -Necrosis Amt Small (1-33%) -Necrotic Tissue Type Adherent Slough -Structure Exposed N/A -Texture (Adeola-wound Skin Appearance) Assessed, Scarring -Moisture (Adeola-wound Skin Appearance Assessed ) -Color (Adeola-wound Skin Appearance) Assessed -Temperature (Adeola-wound Skin No Abnormality Appearance) (Pt Warm) -Tenderness on Palpation (Adeola-wound No Skin Appearance) -Ulcer Cleansing Wound Cleanser -Foul Odor after Cleansing No -Anesthetic Used 4% Lidocaine Solution [Edema Assessment] -Lower Limb Edema Present Yes -Left Calf (cm) 35.5 -Left Ankle (cm) 21.5 WC - Nurse 2 - General Ulcer CM Notes Start: 08/02/20 11:12 Freq: Status: Active Protocol: Activity Type Activity Date Activity User E-Sign Co-Sign Detail Recorded Client Recorded Date Recorded By Document 08/16/20 09:50 MW [id number] 08/16/20 09:57 MW 08/16/20 09:50 Wound Center Nurse 2 [Procedure/Treatment] #1 Left Superior Celaya -Time 09:51 -Correct Patient Yes -Correct Side, Site, Position Yes -Correct Procedure Yes -Procedure Performed Yes -Type of Procedure Debridement -Clinical Debridement Subcutaneous -Tissue Removed Subcutaneous -Post Debridement (cm) - Length 7.5 -Post Debridement (cm) - Width 9.0 -Post Debridement (cm) - Depth 0.1 -Total Square (Post) (cm) 67.50 -Area of Debridement (cm) - Length 7.5 -Area of Debridement (cm) - Width 9.0 -Total Square (Area) (cm) 67.50 -Tunneling No -Undermining/Tunneling No -Circular Undermining No -Wound/Ulcer Outcome Not Healed -Ulcer Cleansing Rinsed/ Irrigated with Saline -Foul Odor after Cleansing No -Bioengineered Tissue No -Bleeding Controlled with Pressure -Offloading No -Treatment Response Procedure Tolerated Well -Debridement - Subq, 1st 20sq cm Yes -Debridement, SubQ, ea addt'l 20sq cm 3 or part thereof [See Physician Procedure note for Specifics] Pain Scale: 0-10 Numeric [Pain] -Is Patient Pain Free? Yes [place] - Nurse 3 - General Ulcer D/C NN Start: 08/02/20 11:12 Freq: Status: Active Protocol: Activity Type Activity Date Activity User E-Sign Co-Sign Detail Recorded Client Recorded Date Recorded By Document 08/16/20 10:11 RB [id number] 08/16/20 10:12 RB 08/16/20 10:11 Wound Care Nurse 3 [Wound Dressing] #1 Left Superior Celaya -Ulcer Cleansing Rinsed/ Irrigated with Saline -Primary Dressing Applied Aquacel AG 4x4 -Other Dressing abd -Primary Dressing Covered/Secured Dry Gauze,Dry with Gauze & Roll Gauze,Secured with Tape -Aquacel AG 4x4 1 [Compression Applied] Left -Other tubigrip double [Post Procedure Tolerated] -Treatment Response Procedure Tolerated Well Vital Signs [Pulse] -Pulse Rate (60-100 beats/min) 63 -Pulse Location Monitor [Blood Pressure] -Blood Pressure (90/60-120/80 mm Hg) 131/72 H -Blood Pressure Mean (mm Hg) 91 -Source Monitor -Position Semi-Fowlers -Blood Pressure Location Left Arm Pain Scale: 0-10 Numeric [Pain] -Is Patient Pain Free? Yes WC - Visit Discharge [Visit Discharge Information] -Discharge Condition Stable -Ambulatory Status Ambulatory -Transportation Private Auto -Medication Reconcilliation completed No & provided to patient/care provider -Clinical Summary of Care Provided Yes Musculoskeletal: No Muscle Wasting Neurological: Cranial nerves II-XII grossly intact Psych/Mental Status: Normal Affect Debridement Note Post-Debridement Measurements/Treatment WC - Nurse 2 - General Ulcer CM Notes Start: 08/02/20 11:12 Freq: Status: Active Protocol: Activity Type Activity Date Activity User E-Sign Co-Sign Detail Recorded Client Recorded Date Recorded By Document 08/02/20 11:37 MW [id number] 08/02/20 11:52 MW Document 08/09/20 11:33 MW [id number] 08/09/20 11:40 MW Document 08/16/20 09:50 MW [id number] 08/16/20 09:57 MW 08/02/20 08/09/20 08/16/20 11:37 11:33 09:50 Wound Center Nurse 2 #1 Left Superior Celaya -Time 11:38 11:36 09:51 -Correct Patient Yes Yes Yes -Correct Side, Site, Position Yes Yes Yes -Correct Procedure Yes Yes Yes -Procedure Performed Yes Yes Yes -Type of Procedure Debridement Debridement Debridement -Clinical Debridement Subcutaneous Subcutaneous Subcutaneous -Tissue Removed Subcutaneous Subcutaneous Subcutaneous -Post Debridement (cm) - Length 7.0 7.0 7.5 -Post Debridement (cm) - Width 15.0 12.5 9.0 -Post Debridement (cm) - Depth 0.1 0.1 0.1 -Total Square (Post) (cm) 105.00 87.50 67.50 -Area of Debridement (cm) - Length 7.0 7.0 7.5 -Area of Debridement (cm) - Width 15.0 12.5 9.0 -Total Square (Area) (cm) 105.00 87.50 67.50 -Tunneling No No No -Undermining/Tunneling No No No -Circular Undermining No No No -Wound/Ulcer Outcome Not Healed Not Healed Not Healed -Ulcer Cleansing Rinsed/ Rinsed/ Rinsed/ Irrigated with Irrigated with Irrigated with Saline Saline Saline -Foul Odor after Cleansing No No No -Bioengineered Tissue No No No -Bleeding Controlled with Pressure Pressure Pressure -Offloading No No No -Treatment Response Procedure Procedure Procedure Tolerated Well Tolerated Well Tolerated Well -Debridement - Subq, 1st 20sq cm Yes Yes Yes -Debridement, SubQ, ea addt'l 20sq cm 5 4 3 or part thereof Pain Scale: 0-10 Numeric Is Patient Pain Free? Yes Yes Yes WC - Nurse 3 - General Ulcer D/C NN Start: 08/02/20 11:12 Freq: Status: Active Protocol: Activity Type Activity Date Activity User E-Sign Co-Sign Detail Recorded Client Recorded Date Recorded By Document 08/02/20 11:57 [facility] [id number] 08/02/20 11:58 [facility] Document 08/09/20 11:43 [facility] [id number] 08/09/20 11:44 [facility] Document 08/09/20 11:52 [facility] [id number] 08/09/20 11:52 [facility] Document 08/16/20 10:11 RB [id number] 08/16/20 10:12 RB 08/02/20 08/09/20 08/09/20 11:57 11:43 11:52 Wound Care Nurse 3 #1 Left Superior Celaya -Ulcer Cleansing Rinsed/ Rinsed/ Irrigated with Irrigated with Saline Saline -Foul Odor after Cleansing No No -Primary Dressing Applied Aquacel AG 4x4, Aquacel AG 4x4, NonAdherent NonAdherent Contact Layer Contact Layer -Other Dressing DRSG BANDAR ALLRED RN -Primary Dressing Covered/Secured with Dry Gauze & Dry Gauze & Roll Gauze, Roll Gauze, Secured with Secured with Tape Tape,Other -Other Covering ABD -Aquacel AG 4x4 3 1 Left -Other APPLIED PTS OWN PT WILL APPLY TUBIGRIP OWN TUBI [employer] JOURNEYMAN@ HOME Treatment Response Pulse Rate (60-100 beats/min) Pulse Location Vital Signs Blood Pressure (90/60-120/80 mm Hg) 140/85 H Blood Pressure Mean (mm Hg) 103 Source Manual Position Blood Pressure Location Pain Scale: 0-10 Numeric Is Patient Pain Free? Yes Yes WC - Visit Discharge Discharge Condition Stable Stable Ambulatory Status Ambulatory Ambulatory Transportation Private Auto Private Auto Accompanied by Medication Reconcilliation completed & provided to patient/care provider Clinical Summary of Care Provided 08/16/20 10:11 Wound Care Nurse 3 #1 Left Superior Celaya -Ulcer Cleansing Rinsed/ Irrigated with Saline -Foul Odor after Cleansing -Primary Dressing Applied Aquacel AG 4x4 -Other Dressing abd -Primary Dressing Covered/Secured with Dry Gauze,Dry Gauze & Roll Gauze,Secured with Tape -Other Covering -Aquacel AG 4x4 1 Left -Other tubigrip double Treatment Response Procedure Tolerated Well Pulse Rate (60-100 beats/min) 63 Pulse Location Monitor Vital Signs Blood Pressure (90/60-120/80 mm Hg) 131/72 H Blood Pressure Mean (mm Hg) 91 Source Monitor Position Semi-Fowlers Blood Pressure Location Left Arm Pain Scale: 0-10 Numeric Is Patient Pain Free? Yes WC - Visit Discharge Discharge Condition Stable Ambulatory Status Ambulatory Transportation Private Auto Accompanied by Medication Reconcilliation completed & No provided to patient/care provider Clinical Summary of Care Provided Yes Wound debrided: Left lower extremity Type of Debridement: Excisional debridement Anesthesia Used: 4% Lidocaine Solution Depth: Down to and including healthy tissue, in the subcutaneous layer Percentage of wound debrided: 100 Instrument Used: 5mm curette Tissue Removed: Slough and devitalized tissue Severity: Fat Layer Exposed Amount of bleeding with debridement: Mild Bleeding Controlled with: Pressure Patient tolerated procedure well Assessment/Plan Active Problems Wound of left lower extremity (Chronic) Traumatic, penetrating with fat layer exposed. History of liver transplant (Chronic) Assessment: Traumatic, penetrating left leg wound status post fall. History of liver transplant. Plan: Debridement done as documented above, procedure was well-tolerated. Improving. No new concerns at this time. Continue Double layer Tubigrip for edema management. Elevate lower extremities when seated and in bed. Increased protein intake discussed. Zinc and vitamin C supplements also recommended. Her questions were answered and she was advised to call with any further questions or concerns. Follow-up in 2 weeks. This note was generated with [employer] software. It may contain incorrect words, spelling, and punctuation that were not noted in checking the note before signing. 111xxx-113xx: [id number] Viky subq tissue 20 sq cm/< Add On Codes: [id number] Viky subq tissue add-on - Additional square centimeter debrided, please refer to clinical note.
== END 2020-08-27 23:59 ==
LOC: WC 09:30
PROVIDERS: PCP Family Medicine; Referring Provider Internal Medicine; Visit Provider Internal Medicine
DX: S81.832A Puncture wound without foreign body, left lower leg, initial encounter (principal); W10.9XXA Fall (on) (from) unspecified stairs and steps, initial encounter; Z94.4 Liver transplant status
CPT/HCPCS: 11042; 11045; 87070; 87075; 87077; 87186; 87205

== ENCOUNTER 2020-09-13 10:00 | Outpatient (RCR) | payer MEDICARE, OTHER, SELFPAY ==
[2020-08-28 00:35] VITALS: BP 131/72; PULSE 63; RESP 18; TEMP 36.6
[2020-08-30 09:45] VITALS: BP 157/88; PULSE 65; RESP 16; TEMP 36.2
[2020-08-30 10:38] VITALS: BP 155/78
--- NOTE | 2020-08-30 10:41 | PCM.WC.PN ---
(1) History of liver transplant Status: Chronic Code(s): Z94.4 - Liver transplant status (2) Wound of left lower extremity Status: Chronic Code(s): S81.802A - Unspecified open wound, left lower leg, initial encounter Comment: Traumatic, penetrating with fat layer exposed. Type of Wound Date of Service: 08/30/20 Chief Complaint: Left Leg Wound History of Wound: Ms Hook is a 69-year-old who was referred to the wound center by her primary care physician due to left leg wound. Sustained 3 weeks ago after she fell from missing a step. Tried to manage this on her own but went to see her primary care physician when no significant improvement was noted. Had initially been applying Aquaphor but was switched to mupirocin by her primary care physician. She states that it improved a little. Denies chills, fever or otherwise feeling of unwell. Progress of Wound: Improving. No new concerns at this time. - Physical Exam Vital Signs Temp Pulse Resp BP 97.1 F L 65 16 155/78 H 08/30/20 09:45 08/30/20 09:45 08/30/20 09:45 08/30/20 10:38 General: Alert, Oriented x3, Cooperative, No apparent distress HEENT: Atraumatic, Normocephalic Oral: Moist Mucosa Neck: Supple Lungs: Normal air movement Extremities: No cyanosis, Edema Skin: Ulcer/ Wound Wound Measurements and Assessment WC - Nurse 1 - General Ulcer Measurement Start: 08/30/20 09:45 Freq: Status: Active Protocol: Activity Type Activity Date Activity User E-Sign Co-Sign Detail Recorded Client Recorded Date Recorded By Document 08/30/20 09:45 [facility] [id number] 08/30/20 09:52 [facility] 08/30/20 09:45 Wound Center Nurse 1 [Ulcer Assessment] #1 Left Superior Celaya -Combined with other wound No -Current Size (cm) - Length 7.1 -Current Size (cm) - Width 5.2 -Current Size (cm) - Depth 0.1 -Total Square Cm 36.92 -Photo Taken No -Epithelialization Medium 34-66% -Tunneling No -Undermining/Tunneling No -Circular Undermining No -Exudate Amt Medium -Exudate Type Serosanguineous -Wound Margin Distinct, Outline Attached -Granulation Amt Large (67-100%) -Granulation Quality Red -Slough/Fibrin Yes -Necrosis Amt Small (1-33%) -Necrotic Tissue Type Adherent Slough -Texture (Adeola-wound Skin Appearance) Assessed, Scarring -Moisture (Adeola-wound Skin Appearance Assessed, ) Maceration -Color (Adeola-wound Skin Appearance) Assessed,Palor -Temperature (Adeola-wound Skin No Abnormality Appearance) (Pt Warm) -Tenderness on Palpation (Adeola-wound Yes Skin Appearance) -Ulcer Cleansing Rinsed/ Irrigated with Saline -Foul Odor after Cleansing No -Anesthetic Used 4% Lidocaine Solution [Edema Assessment] -Lower Limb Edema Present Yes -Left Calf (cm) 35.5 -Left Ankle (cm) 21.1 WC - Nurse 2 - General Ulcer CM Notes Start: 08/30/20 09:45 Freq: Status: Active Protocol: Activity Type Activity Date Activity User E-Sign Co-Sign Detail Recorded Client Recorded Date Recorded By Document 08/30/20 10:21 MW [id number] 08/30/20 10:28 MW 08/30/20 10:21 Wound Center Nurse 2 [Procedure/Treatment] #1 Left Superior Celaya -Time 10:24 -Correct Patient Yes -Correct Side, Site, Position Yes -Correct Procedure Yes -Procedure Performed Yes -Type of Procedure Debridement -Clinical Debridement Subcutaneous -Tissue Removed Subcutaneous -Post Debridement (cm) - Length 6.5 -Post Debridement (cm) - Width 3.0 -Post Debridement (cm) - Depth 0.1 -Total Square (Post) (cm) 19.50 -Area of Debridement (cm) - Length 6.5 -Area of Debridement (cm) - Width 3.0 -Total Square (Area) (cm) 19.50 -Tunneling No -Undermining/Tunneling No -Circular Undermining No -Wound/Ulcer Outcome Not Healed -Ulcer Cleansing Rinsed/ Irrigated with Saline -Foul Odor after Cleansing No -Bioengineered Tissue No -Bleeding Controlled with Pressure -Offloading No -Treatment Response Procedure Tolerated Well -Debridement - Subq, 1st 20sq cm Yes [See Physician Procedure note for Specifics] Pain Scale: 0-10 Numeric [Pain] -Is Patient Pain Free? Yes SAGRARIO - Nurse 3 - General Ulcer D/C NN Start: 08/30/20 09:45 Freq: Status: Active Protocol: Activity Type Activity Date Activity User E-Sign Co-Sign Detail Recorded Client Recorded Date Recorded By Document 08/30/20 10:38 RB [id number] 08/30/20 10:39 RB 08/30/20 10:38 Wound Care Nurse 3 [Wound Dressing] #1 Left Superior Celaya -Primary Dressing Applied Aquacel AG 4x4, NonAdherent Contact Layer -Primary Dressing Covered/Secured Dry Gauze,Dry with Gauze & Roll Gauze,Secured with Tape -Aquacel AG 4x4 1 [Compression Applied] Left -Other DOUBLE LAYER TUBIGRIP [Post Procedure Tolerated] -Treatment Response Procedure Tolerated Well Vital Signs [Blood Pressure] -Blood Pressure (90/60-120/80 mm Hg) 155/78 H -Blood Pressure Mean (mm Hg) 103 -Source Monitor -Position Semi-Fowlers -Blood Pressure Location Left Arm Pain Scale: 0-10 Numeric [Pain] -Is Patient Pain Free? Yes WC - Visit Discharge [Visit Discharge Information] -Discharge Condition Stable -Ambulatory Status Ambulatory -Transportation Private Auto -Medication Reconcilliation completed No & provided to patient/care provider -Clinical Summary of Care Provided Yes Debridement Note Post-Debridement Measurements/Treatment WC - Nurse 2 - General Ulcer CM Notes Start: 08/30/20 09:45 Freq: Status: Active Protocol: Activity Type Activity Date Activity User E-Sign Co-Sign Detail Recorded Client Recorded Date Recorded By Document 08/30/20 10:21 MW [id number] 08/30/20 10:28 MW 08/30/20 10:21 Wound Center Nurse 2 #1 Left Superior Celaya -Time 10:24 -Correct Patient Yes -Correct Side, Site, Position Yes -Correct Procedure Yes -Procedure Performed Yes -Type of Procedure Debridement -Clinical Debridement Subcutaneous -Tissue Removed Subcutaneous -Post Debridement (cm) - Length 6.5 -Post Debridement (cm) - Width 3.0 -Post Debridement (cm) - Depth 0.1 -Total Square (Post) (cm) 19.50 -Area of Debridement (cm) - Length 6.5 -Area of Debridement (cm) - Width 3.0 -Total Square (Area) (cm) 19.50 -Tunneling No -Undermining/Tunneling No -Circular Undermining No -Wound/Ulcer Outcome Not Healed -Ulcer Cleansing Rinsed/ Irrigated with Saline -Foul Odor after Cleansing No -Bioengineered Tissue No -Bleeding Controlled with Pressure -Offloading No -Treatment Response Procedure Tolerated Well -Debridement - Subq, 1st 20sq cm Yes Pain Scale: 0-10 Numeric Is Patient Pain Free? Yes - Nurse 3 - General Ulcer D/C NN Start: 08/30/20 09:45 Freq: Status: Active Protocol: Activity Type Activity Date Activity User E-Sign Co-Sign Detail Recorded Client Recorded Date Recorded By Document 08/30/20 10:38 RB [id number] 08/30/20 10:39 RB 08/30/20 10:38 Wound Care Nurse 3 #1 Left Superior Celaya -Primary Dressing Applied Aquacel AG 4x4, NonAdherent Contact Layer -Primary Dressing Covered/Secured with Dry Gauze,Dry Gauze & Roll Gauze,Secured with Tape -Aquacel AG 4x4 1 Left -Other DOUBLE LAYER TUBIGRIP Treatment Response Procedure Tolerated Well Vital Signs Blood Pressure (90/60-120/80 mm Hg) 155/78 H Blood Pressure Mean (mm Hg) 103 Source Monitor Position Semi-Fowlers Blood Pressure Location Left Arm Pain Scale: 0-10 Numeric Is Patient Pain Free? Yes - Visit Discharge Discharge Condition Stable Ambulatory Status Ambulatory Transportation Private Auto Medication Reconcilliation completed & No provided to patient/care provider Clinical Summary of Care Provided Yes Wound debrided: Lower extremity Type of Debridement: Excisional debridement Anesthesia Used: 4% Lidocaine Solution Depth: Down to and including healthy tissue, in the subcutaneous layer Percentage of wound debrided: 100 Instrument Used: 7mm curette Tissue Removed: Slough and devitalized tissue Severity: Fat Layer Exposed Amount of bleeding with debridement: Mild Bleeding Controlled with: Pressure Patient tolerated procedure well Assessment/Plan Assessment: Traumatic, penetrating left leg wound status post fall. History of liver transplant. Plan: Debridement done as documented above, procedure was well-tolerated. Improving. No new concerns at this time. Continue Aquacel Ag and double layer Tubigrip for edema management. Elevate lower extremities when seated and in bed. Increased protein intake discussed. Zinc and vitamin C supplements also recommended. Her questions were answered and she was advised to call with any further questions or concerns. Follow-up in 2 weeks. This note was generated with [employer] software. It may contain incorrect words, spelling, and punctuation that were not noted in checking the note before signing. [id number]: [id number] Viky subq tissue 20 sq cm/<
[2020-09-13 09:59] VITALS: BP 144/78; PULSE 68; TEMP 36.2
[2020-09-13 10:46] VITALS: BP 140/78
--- NOTE | 2020-09-13 10:51 | PN.PCM_ITS ---
(1) History of liver transplant Status: Chronic Code(s): Z94.4 - Liver transplant status (2) Wound of left lower extremity Status: Chronic Code(s): S81.802A - Unspecified open wound, left lower leg, initial encounter Comment: Traumatic, penetrating with fat layer exposed. Type of Wound Date of Service: 09/13/20 Chief Complaint: Left Leg Wound History of Wound: Ms Hook is a 69-year-old who was referred to the wound center by her primary care physician due to left leg wound. Sustained 3 weeks ago after she fell from missing a step. Tried to manage this on her own but went to see her primary care physician when no significant improvement was noted. Had initially been applying Aquaphor but was switched to mupirocin by her primary care physician. She states that it improved a little. Denies chills, fever or otherwise feeling of unwell. Progress of Wound: Healed. No new concerns at this time. - Physical Exam Vital Signs Temp Pulse Resp BP 97.2 F L 68 16 140/78 H 09/13/20 09:59 09/13/20 09:59 08/30/20 09:45 09/13/20 10:46 General: Alert, Oriented x3, Cooperative, No apparent distress HEENT: Atraumatic, Normocephalic Oral: Moist Mucosa Neck: Supple Extremities: No cyanosis, Edema Wound Measurements and Assessment WC - Nurse 1 - General Ulcer Measurement Start: 08/30/20 09:45 Freq: Status: Active Protocol: Activity Type Activity Date Activity User E-Sign Co-Sign Detail Recorded Client Recorded Date Recorded By Document 09/13/20 09:59 ASHLEY [id number] 09/13/20 10:06 KR 09/13/20 09:59 Wound Center Nurse 1 [Ulcer Assessment] #1 Left Superior Celaya -Current Size (cm) - Length 0.1 -Current Size (cm) - Width 0.1 -Current Size (cm) - Depth 0.1 -Total Square Cm 0.01 -Wound Margin Fibrotic Scar, Thickened Scar -Necrosis Amt None Present (0 %) -Texture (Adeola-wound Skin Appearance) Assessed, Scarring -Moisture (Adeola-wound Skin Appearance Assessed,Dry/ ) Scaly -Color (Adeola-wound Skin Appearance) No Abnormality, Assessed -Temperature (Adeola-wound Skin No Abnormality Appearance) (Pt Warm) -Tenderness on Palpation (Adeola-wound No Skin Appearance) -Ulcer Cleansing Rinsed/ Irrigated with Saline -Foul Odor after Cleansing No -Anesthetic Used 4% Lidocaine Solution - Nurse 2 - General Ulcer CM Notes Start: 08/30/20 09:45 Freq: Status: Active Protocol: Activity Type Activity Date Activity User E-Sign Co-Sign Detail Recorded Client Recorded Date Recorded By Document 09/13/20 10:21 MW [id number] 09/13/20 10:24 MW 09/13/20 10:21 Wound Center Nurse 2 [Procedure/Treatment] -Time 10:21 -Correct Patient Yes -Correct Side, Site, Position Yes -Correct Procedure Yes -Procedure Performed No -Post Debridement (cm) - Length 0 -Post Debridement (cm) - Width 0 -Post Debridement (cm) - Depth 0 -Total Square (Post) (cm) 0 -Wound/Ulcer Outcome Healed- Epithelialized [See Physician Procedure note for Specifics] Pain Scale: 0-10 Numeric [Pain] -Is Patient Pain Free? Yes - Nurse 3 - General Ulcer D/C NN Start: 08/30/20 09:45 Freq: Status: Active Protocol: Activity Type Activity Date Activity User E-Sign Co-Sign Detail Recorded Client Recorded Date Recorded By Document 09/13/20 10:46 RB [id number] 09/13/20 10:47 RB 09/13/20 10:46 Wound Care Nurse 3 [Post Procedure Tolerated] -Treatment Response Procedure Tolerated Well Vital Signs [Blood Pressure] -Blood Pressure (90/60-120/80 mm Hg) 140/78 H -Blood Pressure Mean (mm Hg) 98 -Source Monitor -Position Semi-Fowlers -Blood Pressure Location Left Arm Pain Scale: 0-10 Numeric [Pain] -Is Patient Pain Free? Yes - Visit Discharge [Visit Discharge Information] -Discharge Condition Stable -Ambulatory Status Ambulatory -Transportation Private Auto -Medication Reconcilliation completed No & provided to patient/care provider -Clinical Summary of Care Provided Yes -Notes: healed photo taken of wound . adaptic and oll gauze applied secured with tape Musculoskeletal: No Muscle Wasting Neurological: Cranial nerves II-XII grossly intact Psych/Mental Status: Normal Affect Debridement Note Post-Debridement Measurements/Treatment SAGRARIO - Nurse 2 - General Ulcer CM Notes Start: 08/30/20 09:45 Freq: Status: Active Protocol: Activity Type Activity Date Activity User E-Sign Co-Sign Detail Recorded Client Recorded Date Recorded By Document 08/30/20 10:21 MW [id number] 08/30/20 10:28 MW Document 09/13/20 10:21 MW [id number] 09/13/20 10:24 MW 08/30/20 09/13/20 10:21 10:21 Wound Center Nurse 2 #1 Left Superior Celaya -Time 10:24 10:21 -Correct Patient Yes Yes -Correct Side, Site, Position Yes Yes -Correct Procedure Yes Yes -Procedure Performed Yes No -Type of Procedure Debridement -Clinical Debridement Subcutaneous -Tissue Removed Subcutaneous -Post Debridement (cm) - Length 6.5 0 -Post Debridement (cm) - Width 3.0 0 -Post Debridement (cm) - Depth 0.1 0 -Total Square (Post) (cm) 19.50 0 -Area of Debridement (cm) - Length 6.5 -Area of Debridement (cm) - Width 3.0 -Total Square (Area) (cm) 19.50 -Tunneling No -Undermining/Tunneling No -Circular Undermining No -Wound/Ulcer Outcome Not Healed Healed- Epithelialized -Ulcer Cleansing Rinsed/ Irrigated with Saline -Foul Odor after Cleansing No -Bioengineered Tissue No -Bleeding Controlled with Pressure -Offloading No -Treatment Response Procedure Tolerated Well -Debridement - Subq, 1st 20sq cm Yes Pain Scale: 0-10 Numeric Is Patient Pain Free? Yes Yes WC - Nurse 3 - General Ulcer D/C NN Start: 08/30/20 09:45 Freq: Status: Active Protocol: Activity Type Activity Date Activity User E-Sign Co-Sign Detail Recorded Client Recorded Date Recorded By Document 08/30/20 10:38 RB [id number] 08/30/20 10:39 RB Document 09/13/20 10:46 RB [id number] 09/13/20 10:47 RB 08/30/20 09/13/20 10:38 10:46 Wound Care Nurse 3 #1 Left Superior Celaya -Primary Dressing Applied Aquacel AG 4x4, NonAdherent Contact Layer -Primary Dressing Covered/Secured with Dry Gauze,Dry Gauze & Roll Gauze,Secured with Tape -Aquacel AG 4x4 1 Left -Other DOUBLE LAYER TUBIGRIP Treatment Response Procedure Procedure Tolerated Well Tolerated Well Vital Signs Blood Pressure (90/60-120/80 mm Hg) 155/78 H 140/78 H Blood Pressure Mean (mm Hg) 103 98 Source Monitor Monitor Position Semi-Fowlers Semi-Fowlers Blood Pressure Location Left Arm Left Arm Pain Scale: 0-10 Numeric Is Patient Pain Free? Yes Yes WC - Visit Discharge Discharge Condition Stable Stable Ambulatory Status Ambulatory Ambulatory Transportation Private Auto Private Auto Medication Reconcilliation completed & No No provided to patient/care provider Clinical Summary of Care Provided Yes Yes Notes: healed photo taken of wound . adaptic and oll gauze applied secured with tape No debridement was completed today Assessment/Plan Active Problems Wound of left lower extremity (Chronic) Traumatic, penetrating with fat layer exposed. History of liver transplant (Chronic) Assessment: Traumatic, penetrating left leg wound status post fall. History of liver transplant. Plan: Healed. No new concerns at this time. Adaptic and gauze over top for 2 weeks. Tubigrip for edema management. Elevate lower extremities when seated and in bed. Moisturize skin adequately. Her questions were answered and she was advised to call with any further questions or concerns. Discharge from the wound clinic. This note was generated with [employer] dictation software. It may contain incorrect words, spelling, and punctuation that were not noted in checking the note before signing. Office Visits / Consults: [id number] OV L3 Est
== END 2020-09-13 11:03 | disposition home or self-care (01) ==
LOC: WC 10:00
PROVIDERS: PCP Family Medicine; Referring Provider Internal Medicine; Visit Provider Internal Medicine
DX: S81.832A Puncture wound without foreign body, left lower leg, initial encounter (principal); Z94.4 Liver transplant status; R60.0 Localized edema; W10.9XXA Fall (on) (from) unspecified stairs and steps, initial encounter
CPT/HCPCS: 11042; 99213; G0463